=== PATIENT | female | born 1950 | race Hispanic/Latino ===

== ENCOUNTER 2024-12-14 18:13 | Emergency (ER) | payer MEDICARE, OTHER ==
[~2024-12-14 18:13] MED LIST: Iopamidol-370 76% 500 ML MDV (1 ML CHARGE) ONE
[2024-12-14 19:11] LABS: Actual Bicarbonate (HCO3v) 24.6 mEq/L (22-28); Base Excess -1.4 mEq/L (-2.0 to +3.0); Calcium, Ionized (venous) 1.07 mmol/L (1.16-1.32); Chloride (VBG) 104 mmol/L (98-106); Hematocrit-VBG 44 % (36.0-47.0); Hemoglobin (Hb) 14.8 g/dL (11.7-16.1); Potassium (VBG) 3.62 mmol/L (3.70-5.30); Sodium 138 mmol/L (133-146)
[2024-12-14 19:16] LABS: Hematocrit 33.1 % (36.0-47.0); Hemoglobin 10.2 g/dL (12.0-16.0); Mean Corpuscular Hemoglobin 25.4 pg (27.0-31.0); Mean Corpuscular Volume 82.5 fL (78.0-98.0); Platelet Count 276 10x3/uL (130-400); Red Blood Cell (RBC) Count 4.01 mill/uL (4.20-5.40); White Blood Cell (WBC) Count 11.00 10x3/uL (4.8-10.8)
[2024-12-14 19:31] LABS: ALT (SGPT) 38 U/L (Less than 34); AST (SGOT) 100 U/L (11-34); Albumin 1.6 g/dL (3.1-4.5); Alkaline Phosphatase 344 U/L (40-110); Anion Gap 14 mmol/L (10-20); BUN (Urea Nitrogen) 9 mg/dL (9.8-20.1); Bilirubin, Total 0.7 mg/dL (0.3-1.2); Calc. Creatinine Clearance 0 mL/min (70-130); Calcium 7.9 mg/dL (7.8-10.44); Carbon Dioxide 24 mmol/L (23-31); Chloride 105 mmol/L (98-107); Globulin 5.1 g/dL (2.4-3.5); Glucose 207 mg/dL (83-110); Potassium 3.5 mmol/L (3.5-5.1); Sodium 139 mmol/L (136-145)
[2024-12-14 19:31] LABS: CRP, High Sensitivity at Bryan 2.69 mg/dL (< or = 0.5); Lipase 27 U/L (8-78); Magnesium 1.7 mg/dL (1.6-2.6)
[2024-12-14 19:35] LABS: Anisocytosis MODERATE=16-30 cells HPF (0-5); Burr Cells SLIGHT = 2-5 cells HPF (0-1); Nucleated RBC (Manual Ct) 1 % (0); Platelet Adequacy Comment Platelets Normal; Polychromasia MODERATE = 3-4 cells HPF (0-2); Smudge Cells 8.9 %; Target Cells SLIGHT = 2-5 cells HPF (0-1)
[2024-12-14 19:46] LABS: INR-International Normal Ratio 1.3; Prothrombin Time 16.0 sec (12.0-14.7)
[2024-12-14 19:47] LABS: PTT 45.7 sec (22.9-36.1)
[2024-12-14] MEDS ORDERED: Azithromycin 500 MG VIAL ONE (20:10)
[2024-12-14] MEDS ORDERED: Cefepime 2 GM VIAL ONE (20:10)
[2024-12-14] MEDS ORDERED: VANCOMYCIN 1.75 GM/350 ML Premix BAG IVPB SCH (21:00)
[2024-12-14 22:14] LABS: Bacteria/HPF None Seen HPF (None Seen); CAUTI Indications for Culture Fever or rigors; Glucose, Urine (Dipstick) Greater than 1000 mg/dL (Negative); Leukocyte 25 Leu/uL (Negative); Protein, Urine (Dipstick) Negative (Neg-Trace); WBC/HPF 0-3 HPF (0-3)
[2024-12-14 22:15] LABS: Specific Gravity, Urine 1.005 (1.002-1.036)
[2024-12-14 22:16] LABS: Urine Culture Reflex No No
== END 2024-12-14 23:28 | disposition home or self-care (01) ==
LOC: ERS 18:13
DX: S90.512A Abrasion, left ankle, initial encounter (principal); T14.8XXA Other injury of unspecified body region, initial encounter; E87.79 Other fluid overload; C34.90 Malignant neoplasm of unspecified part of unspecified bronchus or lung; E11.9 Type 2 diabetes mellitus without complications; I10 Essential (primary) hypertension; X58.XXXA Exposure to other specified factors, initial encounter
CPT/HCPCS: 71045; 71275; 73700; 74177; 80053; 81001; 82805; 83605; 83690; 83735; 83880; 84484; 85025; 85610; 85730; 86141; 87040; 87086; 87428; 93005; J0456; J0692; J3375; 36415; 96365; 96367; 96368

== ENCOUNTER 2024-12-21 12:22 | Inpatient (IN) | payer OTHER ==
[2024-12-21] MEDS ORDERED: Cefepime 2 GM VIAL ONE (12:52)
[2024-12-21] MEDS ORDERED: Ondansetron PF 4 MG/2 ML Vial ONE (12:52)
[2024-12-21 13:18] LABS: #Basophils 0.06 10x3/uL (0.0-0.2); #Eosinophils 0.24 10x3/uL (0.0-0.7); #Monocytes 1.42 10x3/uL (0.11-0.59); #Neutrophils 6.26 10x3/uL (1.40-6.50); %Basophils 0.6 % (0.0-1.0); %Eosinophils 2.3 % (0.0-10.0); %Lymphocytes 23.4 % (21.0-51.0); %Monocytes 13.6 % (0.0-10.0); %Neutrophils 59.7 % (42.0-75.0); Hematocrit 31.4 % (36.0-47.0); Hemoglobin 9.6 g/dL (12.0-16.0); Mean Corpuscular Hemoglobin 26.2 pg (27.0-31.0); Mean Corpuscular Volume 85.6 fL (78.0-98.0); Platelet Count 313 10x3/uL (130-400); Red Blood Cell (RBC) Count 3.67 mill/uL (4.20-5.40); White Blood Cell (WBC) Count 10.47 10x3/uL (4.8-10.8)
[2024-12-21 13:28] LABS: INR-International Normal Ratio 1.6; Prothrombin Time 18.8 sec (12.0-14.7)
[2024-12-21 13:29] LABS: PTT 53.3 sec (22.9-36.1)
[2024-12-21] MEDS ORDERED: Iopamidol-370 76% 500 ML MDV (1 ML CHARGE) ONE (13:30)
[2024-12-21 13:31] LABS: ALT (SGPT) 23 U/L (Less than 34); AST (SGOT) 55 U/L (11-34); Albumin 1.8 g/dL (3.1-4.5); Alkaline Phosphatase 246 U/L (40-110); Anion Gap 14 mmol/L (10-20); BUN (Urea Nitrogen) 23 mg/dL (9.8-20.1); Bilirubin, Total 0.6 mg/dL (0.3-1.2); Calc. Creatinine Clearance 0 mL/min (70-130); Calcium 8.7 mg/dL (7.8-10.44); Carbon Dioxide 23 mmol/L (23-31); Chloride 108 mmol/L (98-107); Globulin 5.1 g/dL (2.4-3.5); Glucose 170 mg/dL (83-110); Potassium 4.0 mmol/L (3.5-5.1); Sodium 141 mmol/L (136-145)
[2024-12-21] MEDS ORDERED: Vancomycin 1 GM/200 ML (FROZEN) BAG ONE (14:39)
[2024-12-21] MEDS ORDERED: Furosemide 40 MG (4 mL) VIAL ONE (16:03)
[2024-12-21] MEDS ORDERED: Electrolyte Replacement Protocol 1 EACH FS SCH (17:39)
[2024-12-21] MEDS ORDERED: Dextrose 50% Abboject 50 ML SYRINGE SLOW IVP PRN (17:39)
[2024-12-21] MEDS ORDERED: Glucagon 1 MG/ML KIT IM PRN (17:39)
[2024-12-21] MEDS ORDERED: hydrALAZINE 20 MG/ML VIAL SLOW IVP PRN (17:39)
[2024-12-21 18:31] VITALS: BMI 36.9
[2024-12-21] MEDS: Acetaminophen 500 MG TAB PO PRN (19:09)
[2024-12-21] MEDS: Albumin 25% 25 GM (100 mL) BOT IVPB SCH (19:10)
[2024-12-21] MEDS ORDERED: Magnesium 2 GM/50 ML(in water) 2 GM in Premix 1 BAG IVPB SCH (19:30)
[2024-12-21] MEDS: Apixaban 5 MG TAB PO SCH (21:17)
[2024-12-21] MEDS: Metoprolol Succinate XL 25 MG ER.TAB PO SCH (21:18)
[2024-12-21] MEDS: Famotidine 20 MG TAB PO SCH (21:18)
[2024-12-21] MEDS: cefTRIAXone\\ROCEPHIN 1 GM in Sodium Chloride 0.9% 100 ML IVPB SCH (21:18)
[2024-12-21] MEDS: Vancomycin 1 GM in Premix 1 BAG IVPB SCH (22:07)
[2024-12-22 04:52] LABS: ALT (SGPT) 18 U/L (Less than 34); AST (SGOT) 45 U/L (11-34); Albumin 2.4 g/dL (3.1-4.5); Alkaline Phosphatase 185 U/L (40-110); Anion Gap 11 mmol/L (10-20); BUN (Urea Nitrogen) 22 mg/dL (9.8-20.1); Bilirubin, Total 0.5 mg/dL (0.3-1.2); Calc. Creatinine Clearance 115 mL/min (70-130); Calcium 8.7 mg/dL (7.8-10.44); Carbon Dioxide 27 mmol/L (23-31); Chloride 106 mmol/L (98-107); Globulin 4.2 g/dL (2.4-3.5); Glucose 142 mg/dL (83-110); Potassium 3.6 mmol/L (3.5-5.1); Sodium 140 mmol/L (136-145)
[2024-12-22 04:53] LABS: Vancomycin, Random 21.2 ug/mL (See Comment)
[2024-12-22 05:22] LABS: #Basophils 0.06 10x3/uL (0.0-0.2); #Eosinophils 0.27 10x3/uL (0.0-0.7); #Monocytes 1.31 10x3/uL (0.11-0.59); #Neutrophils 4.39 10x3/uL (1.40-6.50); %Basophils 0.7 % (0.0-1.0); %Eosinophils 3.1 % (0.0-10.0); %Lymphocytes 29.3 % (21.0-51.0); %Monocytes 15.3 % (0.0-10.0); %Neutrophils 51.1 % (42.0-75.0); Hematocrit 26.3 % (36.0-47.0); Hemoglobin 7.8 g/dL (12.0-16.0); Mean Corpuscular Hemoglobin 25.7 pg (27.0-31.0); Mean Corpuscular Volume 86.8 fL (78.0-98.0); Platelet Count 263 10x3/uL (130-400); Red Blood Cell (RBC) Count 3.03 mill/uL (4.20-5.40); White Blood Cell (WBC) Count 8.59 10x3/uL (4.8-10.8)
[2024-12-22] MEDS: Furosemide 20 MG (2 mL) VIAL SLOW IVP SCH (05:32)
[2024-12-22] MEDS: Benzonatate 100 MG CAP PO PRN (23:18)
[2024-12-23 04:49] LABS: #Basophils 0.05 10x3/uL (0.0-0.2); #Eosinophils 0.17 10x3/uL (0.0-0.7); #Monocytes 1.56 10x3/uL (0.11-0.59); #Neutrophils 5.45 10x3/uL (1.40-6.50); %Basophils 0.5 % (0.0-1.0); %Eosinophils 1.7 % (0.0-10.0); %Lymphocytes 28.0 % (21.0-51.0); %Monocytes 15.5 % (0.0-10.0); %Neutrophils 54.0 % (42.0-75.0); Hematocrit 27.3 % (36.0-47.0); Hemoglobin 8.3 g/dL (12.0-16.0); Mean Corpuscular Hemoglobin 26.2 pg (27.0-31.0); Mean Corpuscular Volume 86.1 fL (78.0-98.0); Platelet Count 271 10x3/uL (130-400); Red Blood Cell (RBC) Count 3.17 mill/uL (4.20-5.40); White Blood Cell (WBC) Count 10.08 10x3/uL (4.8-10.8)
[2024-12-23 05:06] LABS: Anion Gap 15 mmol/L (10-20); BUN (Urea Nitrogen) 18 mg/dL (9.8-20.1); Calc. Creatinine Clearance 121 mL/min (70-130); Calcium 8.3 mg/dL (7.8-10.44); Carbon Dioxide 26 mmol/L (23-31); Chloride 106 mmol/L (98-107); Glucose 171 mg/dL (83-110); Potassium 3.2 mmol/L (3.5-5.1); Sodium 144 mmol/L (136-145)
[2024-12-23 05:07] LABS: Vancomycin, Random 18.7 ug/mL (See Comment)
[2024-12-23 05:29] LABS: Anisocytosis SLIGHT = 6-15 cells HPF (0-5); Platelet Adequacy Comment Platelets Normal
[2024-12-23] MEDS: [UNRECOGNIZED DRUG - OTHER] PO SCH (08:05)
[2024-12-23] MEDS: Ondansetron PF 4 MG/2 ML Vial IVP PRN (16:00)
[2024-12-23 16:34] LABS: Actual Bicarbonate (HCO3a) 26.7 mEq/L (22-28); Base Excess (BEa) 0.4 mEq/L (-2.0 to +3.0); CO2 Tension 50.1 mmHg (35.0-45.0); Calcium, Ionized (arterial) 1.15 mmol/L (1.12-1.30); Hematocrit-ABG 39 % (36.0-47.0); Hemoglobin (Hb) 13.2 g/dL (12.0-16.0); O2 Tension (PaO2), arterial 79.9 mmHg (> 70.0); Potassium - ABG Lab 3.44 mmol/L (3.70-5.30); pH, Arterial 7.345 (7.35-7.45)
[2024-12-23 16:35] LABS: Puncture Site Right Radial artery
[2024-12-24 04:55] LABS: #Basophils 0.06 10x3/uL (0.0-0.2); #Eosinophils 0.17 10x3/uL (0.0-0.7); #Monocytes 1.25 10x3/uL (0.11-0.59); #Neutrophils 4.55 10x3/uL (1.40-6.50); %Basophils 0.8 % (0.0-1.0); %Eosinophils 2.1 % (0.0-10.0); %Lymphocytes 24.4 % (21.0-51.0); %Monocytes 15.6 % (0.0-10.0); %Neutrophils 56.8 % (42.0-75.0); Hematocrit 30.6 % (36.0-47.0); Hemoglobin 9.1 g/dL (12.0-16.0); Mean Corpuscular Hemoglobin 26.1 pg (27.0-31.0); Mean Corpuscular Volume 87.7 fL (78.0-98.0); Platelet Count 284 10x3/uL (130-400); Red Blood Cell (RBC) Count 3.49 mill/uL (4.20-5.40); White Blood Cell (WBC) Count 8.00 10x3/uL (4.8-10.8)
[2024-12-24 05:00] LABS: Anion Gap 15 mmol/L (10-20); BUN (Urea Nitrogen) 14 mg/dL (9.8-20.1); Calc. Creatinine Clearance 125 mL/min (70-130); Calcium 8.8 mg/dL (7.8-10.44); Carbon Dioxide 26 mmol/L (23-31); Chloride 106 mmol/L (98-107); Glucose 123 mg/dL (83-110); Potassium 3.2 mmol/L (3.5-5.1); Sodium 144 mmol/L (136-145)
[2024-12-24] MEDS: Vancomycin 1 GM in Premix 1 BAG IVPB SCH (08:13)
[2024-12-24] MEDS ORDERED: Electrolyte Replacement Protocol 1 EACH FS ONE (09:06)
[2024-12-24] MEDS: PNEUMOC 20-VAL CONJ-DIP CRM/PF 0.5 ML SYRINGE IM ONE (17:59)
[2024-12-25 04:29] LABS: Calc. Creatinine Clearance 106.0 mL/min (70-130)
[2024-12-25 04:44] LABS: Vancomycin, Random 17.1 ug/mL (See Comment)
[2024-12-25] MEDS: Transdermal Patch Removal TOP SCH (21:31)
[2024-12-26 05:24] LABS: #Basophils 0.05 10x3/uL (0.0-0.2); #Eosinophils 0.53 10x3/uL (0.0-0.7); #Monocytes 1.53 10x3/uL (0.11-0.59); #Neutrophils 6.18 10x3/uL (1.40-6.50); %Basophils 0.5 % (0.0-1.0); %Eosinophils 5.1 % (0.0-10.0); %Lymphocytes 19.1 % (21.0-51.0); %Monocytes 14.9 % (0.0-10.0); %Neutrophils 60.0 % (42.0-75.0); Hematocrit 28.2 % (36.0-47.0); Hemoglobin 8.4 g/dL (12.0-16.0); Mean Corpuscular Hemoglobin 25.8 pg (27.0-31.0); Mean Corpuscular Volume 86.5 fL (78.0-98.0); Platelet Count 298 10x3/uL (130-400); Red Blood Cell (RBC) Count 3.26 mill/uL (4.20-5.40); White Blood Cell (WBC) Count 10.30 10x3/uL (4.8-10.8)
[2024-12-26 05:42] LABS: Anion Gap 15 mmol/L (10-20); BUN (Urea Nitrogen) 27 mg/dL (9.8-20.1); Calc. Creatinine Clearance 89 mL/min (70-130); Calcium 8.7 mg/dL (7.8-10.44); Carbon Dioxide 29 mmol/L (23-31); Chloride 104 mmol/L (98-107); Glucose 168 mg/dL (83-110); Potassium 3.8 mmol/L (3.5-5.1); Sodium 144 mmol/L (136-145)
[2024-12-27 07:30] LABS: #Basophils 0.06 10x3/uL (0.0-0.2); #Eosinophils 0.54 10x3/uL (0.0-0.7); #Monocytes 1.36 10x3/uL (0.11-0.59); #Neutrophils 5.64 10x3/uL (1.40-6.50); %Basophils 0.6 % (0.0-1.0); %Eosinophils 5.3 % (0.0-10.0); %Lymphocytes 24.8 % (21.0-51.0); %Monocytes 13.4 % (0.0-10.0); %Neutrophils 55.6 % (42.0-75.0); Hematocrit 27.5 % (36.0-47.0); Hemoglobin 8.2 g/dL (12.0-16.0); Mean Corpuscular Hemoglobin 26.0 pg (27.0-31.0); Mean Corpuscular Volume 87.3 fL (78.0-98.0); Platelet Count 301 10x3/uL (130-400); Red Blood Cell (RBC) Count 3.15 mill/uL (4.20-5.40); White Blood Cell (WBC) Count 10.14 10x3/uL (4.8-10.8)
[2024-12-27 07:42] LABS: Anion Gap 14 mmol/L (10-20); BUN (Urea Nitrogen) 23 mg/dL (9.8-20.1); Calc. Creatinine Clearance 98 mL/min (70-130); Calcium 8.6 mg/dL (7.8-10.44); Carbon Dioxide 28 mmol/L (23-31); Chloride 104 mmol/L (98-107); Glucose 124 mg/dL (83-110); Magnesium 1.8 mg/dL (1.6-2.6); Potassium 3.1 mmol/L (3.5-5.1); Sodium 143 mmol/L (136-145)
[2024-12-27] MEDS: Magnesium 2 GM/50 ML(in water) 2 GM in Premix 1 BAG IVPB SCH (08:54)
[2024-12-27] MEDS: [UNRECOGNIZED DRUG - OTHER] PO SCH (09:00)
[2024-12-28 04:09] LABS: #Basophils 0.06 10x3/uL (0.0-0.2); #Eosinophils 0.39 10x3/uL (0.0-0.7); #Monocytes 1.38 10x3/uL (0.11-0.59); #Neutrophils 6.88 10x3/uL (1.40-6.50); %Basophils 0.6 % (0.0-1.0); %Eosinophils 3.6 % (0.0-10.0); %Lymphocytes 19.7 % (21.0-51.0); %Monocytes 12.7 % (0.0-10.0); %Neutrophils 63.0 % (42.0-75.0); Hematocrit 28.9 % (36.0-47.0); Hemoglobin 8.8 g/dL (12.0-16.0); Mean Corpuscular Hemoglobin 26.1 pg (27.0-31.0); Mean Corpuscular Volume 85.8 fL (78.0-98.0); Platelet Count 303 10x3/uL (130-400); Red Blood Cell (RBC) Count 3.37 mill/uL (4.20-5.40); White Blood Cell (WBC) Count 10.89 10x3/uL (4.8-10.8)
[2024-12-28 04:46] LABS: Anion Gap 14 mmol/L (10-20); BUN (Urea Nitrogen) 24 mg/dL (9.8-20.1); Calc. Creatinine Clearance 104 mL/min (70-130); Calcium 8.8 mg/dL (7.8-10.44); Carbon Dioxide 30 mmol/L (23-31); Chloride 102 mmol/L (98-107); Glucose 143 mg/dL (83-110); Magnesium 1.9 mg/dL (1.6-2.6); Potassium 3.6 mmol/L (3.5-5.1); Sodium 142 mmol/L (136-145)
[2024-12-28] MEDS: Magnesium 2 GM/50 ML(in water) 2 GM in Premix 1 BAG IVPB SCH (10:36)
[2024-12-29 05:19] LABS: Anion Gap 18 mmol/L (10-20); BUN (Urea Nitrogen) 20 mg/dL (9.8-20.1); Calc. Creatinine Clearance 118 mL/min (70-130); Calcium 8.2 mg/dL (7.8-10.44); Carbon Dioxide 28 mmol/L (23-31); Chloride 100 mmol/L (98-107); Glucose 143 mg/dL (83-110); Magnesium 1.9 mg/dL (1.6-2.6); Potassium 3.6 mmol/L (3.5-5.1); Sodium 142 mmol/L (136-145)
[2024-12-29] MEDS: Magnesium 2 GM/50 ML(in water) 2 GM in Premix 1 BAG IVPB SCH (08:57)
[2024-12-29 13:08] LABS: Bacteria/HPF None Seen HPF (None Seen); CAUTI Indications for Culture Alt mental st,lethar; Glucose, Urine (Dipstick) Greater than 1000 mg/dL (Negative); Leukocyte 500 Leu/uL (Negative); Protein, Urine (Dipstick) 30 mg/dL (Neg-Trace); RBC/HPF Greater than 50 HPF (0-3); Specific Gravity, Urine 1.024 (1.002-1.036); WBC/HPF Greater than 50 HPF (0-3); Yeast-Budding 3+ HPF (None Seen); Yeast-Hyphae 2+ HPF (None Seen)
[2024-12-29 13:09] LABS: Urine Culture Reflex Yes Yes
[2024-12-29 22:29] LABS: Hematocrit 30.5 % (36.0-47.0); Hemoglobin 8.9 g/dL (12.0-16.0)
[2024-12-29] MEDS: Pantoprazole 40 MG VIAL IVP SCH (23:03)
[2024-12-30 05:26] LABS: #Basophils 0.06 10x3/uL (0.0-0.2); #Eosinophils 0.15 10x3/uL (0.0-0.7); #Monocytes 2.31 10x3/uL (0.11-0.59); #Neutrophils 8.65 10x3/uL (1.40-6.50); %Basophils 0.4 % (0.0-1.0); %Eosinophils 1.1 % (0.0-10.0); %Lymphocytes 20.1 % (21.0-51.0); %Monocytes 16.4 % (0.0-10.0); %Neutrophils 61.5 % (42.0-75.0); Hematocrit 30.9 % (36.0-47.0); Hemoglobin 9.1 g/dL (12.0-16.0); Mean Corpuscular Hemoglobin 25.8 pg (27.0-31.0); Mean Corpuscular Volume 87.5 fL (78.0-98.0); Platelet Count 307 10x3/uL (130-400); Red Blood Cell (RBC) Count 3.53 mill/uL (4.20-5.40); White Blood Cell (WBC) Count 14.06 10x3/uL (4.8-10.8)
[2024-12-30 05:52] LABS: Anion Gap 16 mmol/L (10-20); BUN (Urea Nitrogen) 27 mg/dL (9.8-20.1); Calc. Creatinine Clearance 110 mL/min (70-130); Calcium 9.0 mg/dL (7.8-10.44); Carbon Dioxide 31 mmol/L (23-31); Chloride 101 mmol/L (98-107); Glucose 163 mg/dL (83-110); Magnesium 2.0 mg/dL (1.6-2.6); Potassium 3.7 mmol/L (3.5-5.1); Sodium 144 mmol/L (136-145)
[2024-12-30] MEDS: Magnesium 2 GM/50 ML(in water) 2 GM in Premix 1 BAG IVPB SCH (08:23)
[2024-12-30] MEDS: Albumin 25% 25 GM (100 mL) BOT IVPB SCH (11:38)
[2024-12-30] MEDS: Furosemide 40 MG (4 mL) VIAL SLOW IVP SCH (13:53)
[2024-12-30] MEDS: Fluconazole In NaCl,Iso-Osm 200 MG in Premix 1 BAG IVPB SCH (18:30)
[2024-12-31] MEDS: Furosemide 40 MG (4 mL) VIAL SLOW IVP SCH ×3 (03:36→17:34)
[2024-12-31 04:41] LABS: #Basophils 0.07 10x3/uL (0.0-0.2); #Eosinophils 0.03 10x3/uL (0.0-0.7); #Monocytes 1.95 10x3/uL (0.11-0.59); #Neutrophils 9.47 10x3/uL (1.40-6.50); %Basophils 0.5 % (0.0-1.0); %Eosinophils 0.2 % (0.0-10.0); %Lymphocytes 13.1 % (21.0-51.0); %Monocytes 14.6 % (0.0-10.0); %Neutrophils 70.8 % (42.0-75.0); Hematocrit 30.0 % (36.0-47.0); Hemoglobin 8.4 g/dL (12.0-16.0); Mean Corpuscular Hemoglobin 25.5 pg (27.0-31.0); Mean Corpuscular Volume 91.2 fL (78.0-98.0); Platelet Count 317 10x3/uL (130-400); Red Blood Cell (RBC) Count 3.29 mill/uL (4.20-5.40); White Blood Cell (WBC) Count 13.38 10x3/uL (4.8-10.8)
[2024-12-31 04:56] LABS: Anion Gap 21 mmol/L (10-20); BUN (Urea Nitrogen) 25 mg/dL (9.8-20.1); Calc. Creatinine Clearance 97 mL/min (70-130); Calcium 9.3 mg/dL (7.8-10.44); Carbon Dioxide 28 mmol/L (23-31); Chloride 97 mmol/L (98-107); Glucose 172 mg/dL (83-110); Magnesium 2.1 mg/dL (1.6-2.6); Potassium 3.8 mmol/L (3.5-5.1); Sodium 142 mmol/L (136-145)
[2024-12-31 08:23] LABS: Actual Bicarbonate (HCO3a) 25.2 mEq/L (22-28); Base Excess (BEa) 0.9 mEq/L (-2.0 to +3.0); CO2 Tension 38.5 mmHg (35.0-45.0); Calcium, Ionized (arterial) 1.03 mmol/L (1.12-1.30); Hematocrit-ABG 31 % (36.0-47.0); Hemoglobin (Hb) 10.4 g/dL (12.0-16.0); O2 Tension (PaO2), arterial 143.5 mmHg (> 70.0); Potassium - ABG Lab 4.05 mmol/L (3.70-5.30); pH, Arterial 7.433 (7.35-7.45)
[2024-12-31 08:25] LABS: ALV-art Gradient -41.895 mmHg (0-20)
[2024-12-31] MEDS: Fluconazole In NaCl,Iso-Osm 100 MG in Admixture Fee 1 EACH IVPB SCH (09:01)
[2024-12-31] MEDS: Enoxaparin 40 MG (0.4 mL) SYRINGE SC SCH (09:02)
[2024-12-31] MEDS: Bisacodyl 10 MG SUPP PR SCH (16:02)
[2025-01-01 01:25] LABS: #Basophils 0.08 10x3/uL (0.0-0.2); #Eosinophils 0.09 10x3/uL (0.0-0.7); #Monocytes 2.33 10x3/uL (0.11-0.59); #Neutrophils 10.64 10x3/uL (1.40-6.50); %Basophils 0.5 % (0.0-1.0); %Eosinophils 0.6 % (0.0-10.0); %Lymphocytes 11.6 % (21.0-51.0); %Monocytes 15.5 % (0.0-10.0); %Neutrophils 70.8 % (42.0-75.0); Hematocrit 30.4 % (36.0-47.0); Hemoglobin 8.5 g/dL (12.0-16.0); Mean Corpuscular Hemoglobin 25.4 pg (27.0-31.0); Mean Corpuscular Volume 90.7 fL (78.0-98.0); Platelet Count 327 10x3/uL (130-400); Red Blood Cell (RBC) Count 3.35 mill/uL (4.20-5.40); White Blood Cell (WBC) Count 15.04 10x3/uL (4.8-10.8)
[2025-01-01 01:41] LABS: ALT (SGPT) 11 U/L (Less than 34); AST (SGOT) 27 U/L (11-34); Albumin 2.7 g/dL (3.1-4.5); Alkaline Phosphatase 191 U/L (40-110); Anion Gap 19 mmol/L (10-20); BUN (Urea Nitrogen) 37 mg/dL (9.8-20.1); Bilirubin, Total 0.5 mg/dL (0.3-1.2); Calc. Creatinine Clearance 102 mL/min (70-130); Calcium 9.5 mg/dL (7.8-10.44); Carbon Dioxide 32 mmol/L (23-31); Chloride 95 mmol/L (98-107); Globulin 4.9 g/dL (2.4-3.5); Glucose 201 mg/dL (83-110); Magnesium 1.9 mg/dL (1.6-2.6); Potassium 3.6 mmol/L (3.5-5.1); Sodium 142 mmol/L (136-145)
[2025-01-01 01:42] LABS: Anisocytosis SLIGHT = 6-15 cells HPF (0-5); Platelet Adequacy Comment Platelets Normal; Polychromasia SLIGHT = 2-3 cells HPF (0-2)
[2025-01-01 02:26] LABS: Actual Bicarbonate (HCO3a) 33.7 mEq/L (22-28); Base Excess (BEa) 6.3 mEq/L (-2.0 to +3.0); Calcium, Ionized (arterial) 1.21 mmol/L (1.12-1.30); Hematocrit-ABG 32 % (36.0-47.0); Hemoglobin (Hb) 10.8 g/dL (12.0-16.0); O2 Tension (PaO2), arterial 167.5 mmHg (> 70.0); Potassium - ABG Lab 3.59 mmol/L (3.70-5.30); pH, Arterial 7.334 (7.35-7.45)
[2025-01-01 02:28] LABS: CO2 Tension 64.8 mmHg (35.0-45.0)
[2025-01-01 02:29] LABS: Puncture Site Left Radial artery
[2025-01-01 02:30] LABS: ALV-art Gradient 36.700 mmHg (0-20)
[2025-01-01] MEDS: Magnesium 2 GM/50 ML(in water) 2 GM in Premix 1 BAG IVPB SCH (03:51)
[2025-01-01] MEDS ORDERED: SUCCINYLCHOLINE/SOD CL,ISO/PF 200 MG/10 ML SYRINGE FS ONE (06:01)
[2025-01-01] MEDS ORDERED: Etomidate 40 MG (20 mL) VIAL ONE (06:01)
[2025-01-01] MEDS: Etomidate 40 MG (20 mL) VIAL IVP SCH (06:01)
[2025-01-01] MEDS ORDERED: Propofol BOLUS 1,000 MG/100 ML VIAL IV PRN (06:30)
[2025-01-01] MEDS ORDERED: Fentanyl BOLUS 100 ML IVPB PRN (06:30)
[2025-01-01] MEDS ORDERED: DISCONTINUE PREVIOUS NARCOTIC PAIN MEDICATIONS AND BENZODIAZEPINES FS SCH (06:30)
[2025-01-01 06:31] LABS: Anion Gap 16 mmol/L (10-20); BUN (Urea Nitrogen) 37 mg/dL (9.8-20.1); Calc. Creatinine Clearance 97 mL/min (70-130); Calcium 9.5 mg/dL (7.8-10.44); Carbon Dioxide 34 mmol/L (23-31); Chloride 97 mmol/L (98-107); Glucose 196 mg/dL (83-110); Potassium 3.5 mmol/L (3.5-5.1); Sodium 143 mmol/L (136-145)
[2025-01-01 07:52] LABS: Actual Bicarbonate (HCO3a) 32.7 mEq/L (22-28); Base Excess (BEa) 9.1 mEq/L (-2.0 to +3.0); CO2 Tension 40.6 mmHg (35.0-45.0); Calcium, Ionized (arterial) 1.20 mmol/L (1.12-1.30); Hematocrit-ABG 27 % (36.0-47.0); Hemoglobin (Hb) 9.3 g/dL (12.0-16.0); O2 Tension (PaO2), arterial 62.3 mmHg (> 70.0); Potassium - ABG Lab 3.53 mmol/L (3.70-5.30); pH, Arterial 7.524 (7.35-7.45)
[2025-01-01 07:53] LABS: ALV-art Gradient 243.450 mmHg (0-20)
[2025-01-01 07:54] LABS: Puncture Site RR
[2025-01-01] MEDS: Ventilator Sedation Protocol 1 EACH FS ONE (07:57)
[2025-01-01] MEDS: Potassium Bicarbonate/Cit Ac 20 MEQ TAB PER TUBE SCH ×2 (09:28→09:31)
[2025-01-01 18:49] LABS: Fluid, Triglycerides 37 mg/dL (Not Available); Pleural Fluid, Amylase Less than 30 U/L (Not Available); Pleural Fluid, Glucose 146 mg/dL; Pleural Fluid, LDH 118 U/L (Not Available); Pleural Fluid, Protein 3.2 g/dL
[2025-01-01 19:30] LABS: RBC Count-Automated (BF) 13899 /cu.mm; WBC/Nucleated-Auto (BF) 480 /cu.mm
[2025-01-01 19:36] LABS: Fluid, pH - Pleural Fld Greater than 7.500 (7.60 - 7.66)
[2025-01-01 20:38] LABS: BF Segmented Neutrophils 13 %; Cell Count Non Hematic 9 %
[2025-01-01] MEDS: Albumin 25% 25 GM (100 mL) BOT IVPB SCH (21:15)
[2025-01-01] MEDS: Mupirocin 1 GM TUBE TP SCH (21:16)
[2025-01-01] MEDS: GUAIFENESIN SF SOLN 200 MG/10 ML UDCUP PER TUBE SCH (21:16)
[2025-01-01] MEDS: Norepinephrine 8 MG/0.9% NS 250 ML IVPB SCH (23:58)
[2025-01-02] MEDS: SUCCINYLCHOLINE/SOD CL,ISO/PF 200 MG/10 ML SYRINGE FS SCH (00:02)
[2025-01-02 04:24] LABS: #Basophils 0.06 10x3/uL (0.0-0.2); #Eosinophils 0.24 10x3/uL (0.0-0.7); #Monocytes 1.43 10x3/uL (0.11-0.59); #Neutrophils 7.61 10x3/uL (1.40-6.50); %Basophils 0.5 % (0.0-1.0); %Eosinophils 2.0 % (0.0-10.0); %Lymphocytes 20.4 % (21.0-51.0); %Monocytes 12.0 % (0.0-10.0); %Neutrophils 64.1 % (42.0-75.0); Hematocrit 27.1 % (36.0-47.0); Hemoglobin 7.9 g/dL (12.0-16.0); Mean Corpuscular Hemoglobin 25.5 pg (27.0-31.0); Mean Corpuscular Volume 87.4 fL (78.0-98.0); Platelet Count 288 10x3/uL (130-400); Red Blood Cell (RBC) Count 3.10 mill/uL (4.20-5.40); White Blood Cell (WBC) Count 11.88 10x3/uL (4.8-10.8)
[2025-01-02 04:46] LABS: Anion Gap 22 mmol/L (10-20); BUN (Urea Nitrogen) 30 mg/dL (9.8-20.1); Calc. Creatinine Clearance 95 mL/min (70-130); Calcium 9.3 mg/dL (7.8-10.44); Carbon Dioxide 27 mmol/L (23-31); Chloride 100 mmol/L (98-107); Glucose 161 mg/dL (83-110); Magnesium 1.9 mg/dL (1.6-2.6); Potassium 2.7 mmol/L (3.5-5.1); Sodium 146 mmol/L (136-145)
[2025-01-02] MEDS: Potassium Chloride 40 MEQ in Premix 1 BAG IVPB SCH (04:59)
[2025-01-02] MEDS: Magnesium 2 GM/50 ML(in water) 2 GM in Premix 1 BAG IVPB SCH (11:41)
[2025-01-02] MEDS: Enoxaparin 80 MG (0.8 mL) SYRINGE SC SCH ×2 (11:41→21:50)
[2025-01-03 04:15] LABS: #Basophils 0.05 10x3/uL (0.0-0.2); #Eosinophils 0.17 10x3/uL (0.0-0.7); #Monocytes 1.71 10x3/uL (0.11-0.59); #Neutrophils 8.42 10x3/uL (1.40-6.50); %Basophils 0.4 % (0.0-1.0); %Eosinophils 1.3 % (0.0-10.0); %Lymphocytes 18.3 % (21.0-51.0); %Monocytes 13.3 % (0.0-10.0); %Neutrophils 65.4 % (42.0-75.0); Hematocrit 28.1 % (36.0-47.0); Hemoglobin 8.5 g/dL (12.0-16.0); Mean Corpuscular Hemoglobin 25.8 pg (27.0-31.0); Mean Corpuscular Volume 85.2 fL (78.0-98.0); Platelet Count 318 10x3/uL (130-400); Red Blood Cell (RBC) Count 3.30 mill/uL (4.20-5.40); White Blood Cell (WBC) Count 12.88 10x3/uL (4.8-10.8)
[2025-01-03 04:28] LABS: Anion Gap 25 mmol/L (10-20); BUN (Urea Nitrogen) 24 mg/dL (9.8-20.1); Calc. Creatinine Clearance 89 mL/min (70-130); Calcium 9.4 mg/dL (7.8-10.44); Carbon Dioxide 24 mmol/L (23-31); Chloride 105 mmol/L (98-107); Glucose 141 mg/dL (83-110); Magnesium 1.9 mg/dL (1.6-2.6); Potassium 3.5 mmol/L (3.5-5.1); Sodium 150 mmol/L (136-145)
[2025-01-03] MEDS: Magnesium 2 GM/50 ML(in water) 2 GM in Premix 1 BAG IVPB SCH (07:55)
[2025-01-03] MEDS: Potassium Chloride 20 MEQ in Premix 1 BAG IVPB SCH (07:55)
[2025-01-04 04:17] LABS: #Basophils 0.06 10x3/uL (0.0-0.2); #Eosinophils 0.15 10x3/uL (0.0-0.7); #Monocytes 1.56 10x3/uL (0.11-0.59); #Neutrophils 7.29 10x3/uL (1.40-6.50); %Basophils 0.5 % (0.0-1.0); %Eosinophils 1.3 % (0.0-10.0); %Lymphocytes 18.7 % (21.0-51.0); %Monocytes 13.7 % (0.0-10.0); %Neutrophils 64.2 % (42.0-75.0); Hematocrit 28.8 % (36.0-47.0); Hemoglobin 8.2 g/dL (12.0-16.0); Mean Corpuscular Hemoglobin 25.3 pg (27.0-31.0); Mean Corpuscular Volume 88.9 fL (78.0-98.0); Platelet Count 332 10x3/uL (130-400); Red Blood Cell (RBC) Count 3.24 mill/uL (4.20-5.40); White Blood Cell (WBC) Count 11.36 10x3/uL (4.8-10.8)
[2025-01-04 04:43] LABS: Anion Gap 25 mmol/L (10-20); BUN (Urea Nitrogen) 19 mg/dL (9.8-20.1); Calc. Creatinine Clearance 91 mL/min (70-130); Calcium 9.1 mg/dL (7.8-10.44); Carbon Dioxide 23 mmol/L (23-31); Chloride 109 mmol/L (98-107); Glucose 141 mg/dL (83-110); Potassium 4.0 mmol/L (3.5-5.1); Sodium 153 mmol/L (136-145)
[2025-01-04] MEDS: Sodium Bicarbonate 140 MEQ in Dextrose 5% in Water 1,000 ML IV SCH (09:58)
[2025-01-05 04:58] LABS: #Basophils 0.05 10x3/uL (0.0-0.2); #Eosinophils 0.20 10x3/uL (0.0-0.7); #Monocytes 1.57 10x3/uL (0.11-0.59); #Neutrophils 6.76 10x3/uL (1.40-6.50); %Basophils 0.5 % (0.0-1.0); %Eosinophils 1.9 % (0.0-10.0); %Lymphocytes 17.0 % (21.0-51.0); %Monocytes 15.0 % (0.0-10.0); %Neutrophils 64.7 % (42.0-75.0); Hematocrit 28.4 % (36.0-47.0); Hemoglobin 8.4 g/dL (12.0-16.0); Mean Corpuscular Hemoglobin 25.5 pg (27.0-31.0); Mean Corpuscular Volume 86.1 fL (78.0-98.0); Platelet Count 354 10x3/uL (130-400); Red Blood Cell (RBC) Count 3.30 mill/uL (4.20-5.40); White Blood Cell (WBC) Count 10.44 10x3/uL (4.8-10.8)
[2025-01-05 05:24] LABS: Anion Gap 22 mmol/L (10-20); BUN (Urea Nitrogen) 15 mg/dL (9.8-20.1); Calc. Creatinine Clearance 102 mL/min (70-130); Calcium 8.6 mg/dL (7.8-10.44); Carbon Dioxide 29 mmol/L (23-31); Chloride 108 mmol/L (98-107); Glucose 207 mg/dL (83-110); Potassium 3.3 mmol/L (3.5-5.1); Sodium 156 mmol/L (136-145)
[2025-01-05] MEDS: VANCOMYCIN 2 GRAM/400 ML BAG 2 GM in Premix 1 BAG IVPB SCH (09:29)
[2025-01-05] MEDS: Fluconazole In NaCl,Iso-Osm 200 MG in Premix 1 BAG IVPB SCH (09:30)
[2025-01-05] MEDS: Potassium Chloride 40 MEQ in Premix 1 BAG IVPB SCH (12:40)
[2025-01-05 19:04] LABS: Potassium 3.3 mmol/L (3.5-5.1)
[2025-01-05] MEDS: Potassium Chloride 20 MEQ in Premix 1 BAG IVPB SCH (20:47)
[2025-01-06 05:20] LABS: #Basophils 0.05 10x3/uL (0.0-0.2); #Eosinophils 0.66 10x3/uL (0.0-0.7); #Monocytes 1.20 10x3/uL (0.11-0.59); #Neutrophils 7.33 10x3/uL (1.40-6.50); %Basophils 0.4 % (0.0-1.0); %Eosinophils 5.8 % (0.0-10.0); %Lymphocytes 18.3 % (21.0-51.0); %Monocytes 10.5 % (0.0-10.0); %Neutrophils 64.1 % (42.0-75.0); Hematocrit 27.4 % (36.0-47.0); Hemoglobin 7.9 g/dL (12.0-16.0); Mean Corpuscular Hemoglobin 25.3 pg (27.0-31.0); Mean Corpuscular Volume 87.8 fL (78.0-98.0); Platelet Count 308 10x3/uL (130-400); Red Blood Cell (RBC) Count 3.12 mill/uL (4.20-5.40); White Blood Cell (WBC) Count 11.43 10x3/uL (4.8-10.8)
[2025-01-06 05:21] LABS: Vancomycin, Random 34.9 ug/mL (See Comment)
[2025-01-06 05:22] LABS: Anion Gap 15 mmol/L (10-20); BUN (Urea Nitrogen) 12 mg/dL (9.8-20.1); Calc. Creatinine Clearance 98 mL/min (70-130); Calcium 7.8 mg/dL (7.8-10.44); Carbon Dioxide 29 mmol/L (23-31); Chloride 109 mmol/L (98-107); Glucose 169 mg/dL (83-110); Potassium 3.3 mmol/L (3.5-5.1); Sodium 150 mmol/L (136-145)
[2025-01-06] MEDS: Potassium Chloride 20 MEQ in Premix 1 BAG IVPB SCH (06:11)
[2025-01-06 06:35] VITALS: BP 96/55
[2025-01-06 07:04] VITALS: TEMP 98.5
[2025-01-06] MEDS: Electrolyte Replacement Protocol 1 EACH FS ONE (09:45)
[2025-01-06 10:59] VITALS: BMI 33.8
[2025-01-06] MEDS: Glycopyrrolate 0.4 MG/ 2 ML VIAL SLOW IVP PRN (12:36)
[2025-01-06] MEDS ORDERED: Vancomycin 1.5 GM / NS 500 ML VIAL-2-BAG IVPB SCH (23:59)
== END 2025-01-06 17:17 | disposition expired | DRG 602 ==
LOC: ERS 12:22 → 2NO 15:13 → IMCU/EMU 12-23 18:40 → 2SE 12-24 21:26 → MSONC 12-25 18:47 → CCU 01-01 05:06
PROVIDERS: ADMIT Family Medicine; ATTEND Internal Medicine
PROC: 3E03329 Introduction of Other Anti-infective into Peripheral Vein, Percutaneous Approach (ICD-10-PCS; 2024-12-21)
PROC: 5A09357 Assistance with Respiratory Ventilation, Less than 24 Consecutive Hours, Continuous Positive Airway Pressure (ICD-10-PCS; 2024-12-23)
PROC: 4A133R1 Monitoring of Arterial Saturation, Peripheral, Percutaneous Approach (ICD-10-PCS; 2024-12-23)
PROC: 3E02340 Introduction of Influenza Vaccine into Muscle, Percutaneous Approach (ICD-10-PCS; 2024-12-24)
PROC: 0T9B70Z Drainage of Bladder with Drainage Device, Via Natural or Artificial Opening (ICD-10-PCS; 2024-12-27)
PROC: 30233J1 Transfusion of Nonautologous Serum Albumin into Peripheral Vein, Percutaneous Approach (ICD-10-PCS; 2024-12-30)
PROC: 0BH17EZ Insertion of Endotracheal Airway into Trachea, Via Natural or Artificial Opening (ICD-10-PCS; principal; 2025-01-01)
PROC: 0W993ZZ Drainage of Right Pleural Cavity, Percutaneous Approach (ICD-10-PCS; 2025-01-01)
PROC: 02HV33Z Insertion of Infusion Device into Superior Vena Cava, Percutaneous Approach (ICD-10-PCS; 2025-01-01)
PROC: 4A02X4A Measurement of Cardiac Electrical Activity, Guidance, External Approach (ICD-10-PCS; 2025-01-01)
PROC: 3E043XZ Introduction of Vasopressor into Central Vein, Percutaneous Approach (ICD-10-PCS; 2025-01-01)
PROC: 5A1955Z Respiratory Ventilation, Greater than 96 Consecutive Hours (ICD-10-PCS; 2025-01-01)
PROC: 05HY33Z Insertion of Infusion Device into Upper Vein, Percutaneous Approach (ICD-10-PCS; 2025-01-01)
DX: L03.116 Cellulitis of left lower limb (principal); G92.8 Other toxic encephalopathy; I50.33 Acute on chronic diastolic (congestive) heart failure; I81 Portal vein thrombosis; J96.01 Acute respiratory failure with hypoxia; J96.02 Acute respiratory failure with hypercapnia; R57.1 Hypovolemic shock; C78.7 Secondary malignant neoplasm of liver and intrahepatic bile duct; C79.51 Secondary malignant neoplasm of bone; J98.11 Atelectasis; B37.49 Other urogenital candidiasis; E87.1 Hypo-osmolality and hyponatremia; J91.0 Malignant pleural effusion; C34.11 Malignant neoplasm of upper lobe, right bronchus or lung; C79.02 Secondary malignant neoplasm of left kidney and renal pelvis; C79.01 Secondary malignant neoplasm of right kidney and renal pelvis; K92.0 Hematemesis; D84.9 Immunodeficiency, unspecified; E87.29 Other acidosis; J93.82 Other air leak; E87.0 Hyperosmolality and hypernatremia; Z51.5 Encounter for palliative care; Z23 Encounter for immunization; Z66 Do not resuscitate; L03.115 Cellulitis of right lower limb; Z87.01 Personal history of pneumonia (recurrent); K76.0 Fatty (change of) liver, not elsewhere classified; Z90.10 Acquired absence of unspecified breast and nipple; Z85.3 Personal history of malignant neoplasm of breast; I11.0 Hypertensive heart disease with heart failure; Z79.82 Long term (current) use of aspirin; E11.65 Type 2 diabetes mellitus with hyperglycemia; Z79.01 Long term (current) use of anticoagulants; E78.00 Pure hypercholesterolemia, unspecified; Z79.4 Long term (current) use of insulin; R33.9 Retention of urine, unspecified; D64.9 Anemia, unspecified; Z79.899 Other long term (current) drug therapy; I36.1 Nonrheumatic tricuspid (valve) insufficiency; E87.6 Hypokalemia; T50.2X5A Adverse effect of carbonic-anhydrase inhibitors, benzothiadiazides and other diuretics, initial encounter; W19.XXXA Unspecified fall, initial encounter; R45.1 Restlessness and agitation
CPT/HCPCS: 36415; 36416; 36600; 71045; 71275; 72170; 80048; 80053; 80202; 81001; 82140; 82150; 82565; 82805; 82945; 83605; 83615; 83735; 83880; 83986; 84145; 84157; 84478; 84484; 85014; 85018; 85025; 85060; 85610; 85730; 87040; 87081; 87086; 87116; 87206; 88112; 88305; 88341; 88342; 89051; 93005; 93010; 93306; 94002; 94003; 94640; 94660; 94760; 96365; 96375; 97139; J0330; J0692; J0696; J1450; J1650; J1815; J1940; J2060; J2250; J2270; J2405; J2470; J2543; J2704; J3373; J3375; J3475; J3480; J7030; J7050; J7070; P9047; Q9967